=== PATIENT | female | born 1990 | race African-American/Black ===

== ENCOUNTER 2016-10-14 15:03 | Emergency (ER) | payer MEDICAID, OTHER ==
[~2016-10-14] VITALS: Ht 149.9 cm; Wt 94.8 kg
[~2016-10-14 15:03] MED LIST: CLINDAMYCIN HC300 MG ORAL; IBUPROFEN600 MG ORAL; NKM
[2016-10-14 15:27] VITALS: BP 117/76
[2016-10-14] MEDS ORDERED: Albuterol ud Inhalation HHN ONE (16:00)
[2016-10-14] MEDS ORDERED: Ipratropium 0.02% Inh Soln 2.5ml UD HHN ONE (16:00)
[2016-10-14] MEDS ORDERED: PROMETHAZINE-D118 ML ORAL (17:06)
[2016-10-14] MEDS ORDERED: ZITHROMAX250 MG ORAL (17:06)
[2016-10-14] MEDS ORDERED: PROAIR HFA8.5 GM INH (17:06)
[2016-10-14 17:25] VITALS: BP 117/76
--- NOTE | 2016-10-14 19:12 | Emergency Room Report ---
History of Present Illness General Chief Complaint: Upper Respiratory Illness Source: Patient Present Illness HPI The patient is a 26-year-old female presenting with 2 days of productive cough and headache. Headache is described as a total head 5/10 dull ache and is constant. The patient does admit to a distant history of asthma. The patient denies sick contacts recent travel. The patient denies any other symptoms including nausea, vomiting, fever, chills, night sweats, hemoptysis, neck pain or stiffness, chest pain, shortness of breath, abdominal pain. Allergies: Coded Allergies: No Known Allergies (Unverified , 11/27/12) Patient History Past Medical History: see triage record Pertinent Family History: none Last Menstrual Period: 10/03/16 Now: No Reviewed Nursing Documentation: PMH: Agreed, PSxH: Agreed Nursing Documentation-PMH Past Medical History: No Stated History Review of Systems All Other Systems: negative except mentioned in HPI Physical Exam Vital Signs Date Time Temp Pulse Resp B/P Pulse Ox O2 Delivery O2 Flow Rate FiO2 10/14/16 15:19 97.5 98 15 117/76 98 Room Air Sp02 EP Interpretation: reviewed, normal General Appearance: no apparent distress, alert, GCS 15, non-toxic Head: normocephalic, atraumatic Eyes: bilateral eye PERRL, bilateral eye normal inspection ENT: hearing grossly normal, normal pharynx, no angioedema, normal voice, TMs + canals normal, uvula midline, moist mucus membranes Neck: full range of motion, supple, supple/symm/no masses Respiratory: chest non-tender, lungs clear, no respiratory distress, no accessory muscle use, decreased breath sounds, speaking full sentences Cardiovascular #1: regular rate, rhythm, no edema Gastrointestinal: normal bowel sounds, non tender, soft, non-distended, no guarding, no rebound Musculoskeletal: back normal, gait/station normal, normal range of motion, non- tender Neurologic: alert, oriented x3, responsive, motor strength/tone normal, sensory intact, speech normal Psychiatric: judgement/insight normal, memory normal, mood/affect normal, no suicidal/homicidal ideation Skin: normal color, no rash, warm/dry, well hydrated Lymphatic: no adenopathy Medical Decision Making PA Attestation Dr. Hernandez is my supervising physician. Patient management was discussed with my supervising physician Diagnostic Impression: Primary Impression: Bronchitis ER Course The patient is a 26-year-old female presenting with 2 days of productive cough and headache. Differential diagnosis include but not limited to pharyngitis, sinusitis, AOM, bronchitis, PNA Physical exam: Afebrile. No apparent distress. HEENT exam is unremarkable. No tonsillar edema or erythema. Lungs: No wheezing. Decreased breath sounds diffusely. No accessory muscle use. Skin is warm and dry The patient is given a breathing treatment and Tylenol for headache. Lungs sounds have increased. No wheezing. The patient will be treated for bronchitis with cough medication and albuterol. ER precautions are given and the patient will follow up with primary care physician Last Vital Signs Date Time Temp Pulse Resp B/P Pulse Ox O2 Delivery O2 Flow Rate FiO2 10/14/16 17:25 97.5 98 15 117/76 98 Room Air Status: improved Disposition: HOME, SELF-CARE Condition: Improved Scripts Albuterol Sulfate* (PROAIR HFA*) 8.5 Gm Hfa.aer.ad 2 PUFFS INH Q6H, #8.5 GM 0 Refills Prov: SEDA STUART 10/14/16 D-Methorphan Hb/Prometh Hcl* (PROMETHAZINE-DM SYRUP*) 118 Ml Syrup 5 ML ORAL Q6H Y for For Cough, #118 ML 0 Refills Prov: SEDA STUART 10/14/16 Referrals: [facility],REFERRING (PCP) Patient Instructions: Acute Bronchitis Additional Instructions: I discussed my findings with the patient. All questions and concerns have been answered. Treatment and medication compliance have been addressed. I advised the patient that they need to follow up with PMD in 3-5 days. Return to ED if pain remains or worsens, cough worsens or remains, you notice blood in your sputum, you notice wheezing, you experience a fever, or if needed for any reason. Patient verbalized understanding of discharge instructions. SEDA STUART Oct 14, 2016 19:12
== END 2016-10-14 17:25 | disposition home or self-care (01) ==
LOC: EMR 15:30
DX: J40 Bronchitis, not specified as acute or chronic (principal); R51 Headache
CPT/HCPCS: 94640; 94664; 99284

== ENCOUNTER 2017-04-13 15:55 | Emergency (ER) | payer OTHER ==
[~2017-04-13] VITALS: Ht 149.9 cm; Wt 90.7 kg
[~2017-04-13 15:55] MED LIST changes: +PROAIR HFA8.5 GM INH; +PROMETHAZINE-D118 ML ORAL; +ZITHROMAX250 MG ORAL
[2017-04-13 16:45] VITALS: BP 122/84
--- NOTE | 2017-04-13 17:12 | Emergency Room Report ---
History of Present Illness General Chief Complaint: Abdominal Pain Source: Patient Present Illness HPI Presents with quadrant pain. Began last night it is severe. It's constant and radiates to her back. She been vomiting. She didn't see what color this was as it was dark last night. Denies diarrhea, dysuria. No fevers. No URI sy. Pain 9-10/10, burning pressure, constant. No meds taken. Her last period was last month. Prior period was 8 months before. Fairly normal period last month. She denies having pain like this in the past. Allergies: Coded Allergies: No Known Allergies (Unverified , 11/27/12) Patient History Past Medical History: see triage record Social History: Denies: smoking Social History Narrative with boyfriend Last Menstrual Period: 1 month Now: No Reviewed Nursing Documentation: PMH: Agreed, PSxH: Agreed Nursing Documentation-PMH Past Medical History: No Stated History Review of Systems All Other Systems: negative except mentioned in HPI Physical Exam Vital Signs Date Time Temp Pulse Resp B/P Pulse Ox O2 Delivery O2 Flow Rate FiO2 04/13/17 16:18 98.1 86 18 122/84 98 Room Air Sp02 EP Interpretation: reviewed, normal General Appearance: well appearing, no apparent distress, GCS 15, obese Head: normocephalic Eyes: bilateral eye normal inspection ENT: moist mucus membranes Neck: supple Respiratory: lungs clear, normal breath sounds Cardiovascular #1: regular rate, rhythm Cardiovascular #2: 2+ radial (R) Gastrointestinal: normal inspection, normal bowel sounds, no mass, non- distended, no rebound, guarding, tenderness - ruq, overweight Musculoskeletal: back normal, gait/station normal, normal range of motion Neurologic: alert, oriented x3, grossly normal Psychiatric: mood/affect normal Skin: normal inspection, warm/dry Medical Decision Making Diagnostic Impression: Primary Impression: Biliary colic ER Course The patient presents with quadrant pain. Differential includes gallstone, cholecystitis, peptic ulcer disease, GERD, pancreatitis amongst others. Emergent evaluation is undertaken with labs and ultrasound. Also periods been abnormally to exclude at this time. She'll be treated with IV hydration, Zofran, morphine and Pepcid. Pain not controlled with morphine. Dilaudid ordered. Labs with normal WBC, lipase and lft's. U/S + stones, normal CBD, no wall thickening or fluid. Improved. Discussed need for diet control and surgery. Patient stable for outpatient observation and treatment. At discharge, patient pressing for [place] 10 instead of 5. Laboratory Tests Test 04/13/17 16:30 White Blood Count 12.8 K/UL (4.8-10.8) H Red Blood Count 4.42 M/UL (4.20-5.40) Hemoglobin 13.5 G/DL (12.0-16.0) Hematocrit 39.5 % (37.0-47.0) Mean Corpuscular Volume 89 FL (80-99) Mean Corpuscular Hemoglobin 30.6 PG (27.0-31.0) Mean Corpuscular Hemoglobin Concent 34.3 G/DL (32.0-36.0) Red Cell Distribution Width 12.4 % (11.6-14.8) Platelet Count 254 K/UL (150-450) Mean Platelet Volume 7.3 FL (6.5-10.1) Neutrophils (%) (Auto) 80.6 % (45.0-75.0) H Lymphocytes (%) (Auto) 13.3 % (20.0-45.0) L Monocytes (%) (Auto) 5.3 % (1.0-10.0) Eosinophils (%) (Auto) 0.2 % (0.0-3.0) Basophils (%) (Auto) 0.6 % (0.0-2.0) Prothrombin Time 10.4 SEC (9.30-11.50) Prothrombin Time INR 1.0 (0.9-1.1) PTT 28 SEC (23-33) Urine Color Pale yellow Urine Appearance Clear Urine pH 6 (4.5-8.0) Urine Specific [place] 1.010 (1.005-1.035) Urine Protein Negative (NEGATIVE) Urine Glucose (UA) Negative (NEGATIVE) Urine Ketones 1+ (NEGATIVE) H Urine Occult Blood 1+ (NEGATIVE) H Urine Nitrite Negative (NEGATIVE) Urine Bilirubin Negative (NEGATIVE) Urine Urobilinogen Normal MG/DL (0.0-1.0) Urine Leukocyte Esterase 1+ (NEGATIVE) H Urine RBC 2-4 /HPF (0 - 2) H Urine WBC 0-2 /HPF (0 - 2) Urine Squamous Epithelial Cells Few /LPF (NONE/OCC) Urine Bacteria Few /HPF (NONE) Urine HCG, Qualitative Negative Sodium Level 134 mEQ/L (135-145) L Potassium Level 3.6 mEQ/L (3.4-4.9) Chloride Level 96 mEQ/L (98-107) L Carbon Dioxide Level 24 mEQ/L (20-30) Anion Gap 14 (5-15) Blood Urea Nitrogen 8 mg/dL (7-23) Creatinine 0.7 mg/dL (0.5-0.9) Estimate Glomerular Filtration Rate > 60 mL/min (>60) Glucose Level 100 mg/dL (74-106) Calcium Level 9.5 mg/dL (8.6-10.2) Total Bilirubin 0.6 mg/dL (0.0-1.2) Aspartate Amino Transferase (AST) 18 U/L (5-40) Alanine Aminotransferase (ALT) 32 U/L (3-33) Alkaline Phosphatase 64 U/L (35-104) Total Protein 7.7 g/dL (6.6-8.7) Albumin 4.5 g/dL (3.5-5.2) Globulin 3.2 g/dL Albumin/Globulin Ratio 1.4 (1.0-2.7) Lipase 27 U/L (< 60) CT/MRI/US Diagnostic Results CT/MRI/US Diagnostic Results : Imaging Test Ordered: abd u/s Impression mult stones, no obstruction, no wall thickening Last Vital Signs Date Time Temp Pulse Resp B/P Pulse Ox O2 Delivery O2 Flow Rate FiO2 04/13/17 20:38 98.1 89 20 106/62 100 Room Air Status: improved Disposition: HOME, SELF-CARE Condition: Improved Scripts Hydrocodone Bit/Acetaminophen 5-325* (NORCO 5-325*) 1 Each Tablet 1 TAB ORAL Q6H Y for For Pain, #10 TAB 0 Refills Prov: Hu Hernandez M.D. 04/13/17 Ondansetron Odt* (ZOFRAN ODT*) 4 Mg Tab.rapdis 4 MG ORAL Q8H Y for Nausea & Vomiting, #6 TAB 1 Refill Prov: Hu Hernandez M.D. 04/13/17 Hu Hernandez M.D. Apr 13, 2017 17:12
[2017-04-13] MEDS ORDERED: Famotidine 20 MG/ 2ML VIAL IVP ONE (17:15)
[2017-04-13] MEDS ORDERED: Morphine Sulfate 4mg/ml Inj IVP ONE (17:15)
[2017-04-13 17:26] LABS: APPEARANCE,URINE CLEAR; BASOPHILS % (AUTO) 0.6 % (0.0-2.0); EOSINOPHILS % (AUTO) 0.2 % (0.0-3.0); KETONES,URINE 1+ (NEGATIVE); LEUKOCYTE ESTERASE ,URINE 1+ (NEGATIVE); LYMPHOCYTES % (AUTO) 13.3 % (20.0-45.0); MEAN CORPUSCULAR HEMOGLOBIN 30.6 PG (27.0-31.0); MEAN CORPUSCULAR HGB CONC 34.3 G/DL (32.0-36.0); MEAN CORPUSCULAR VOLUME 89 FL (80-99); MEAN PLATELET VOLUME 7.3 FL (6.5-10.1); MONOCYTES % (AUTO) 5.3 % (1.0-10.0); NEUTROPHILS % (AUTO) 80.6 % (45.0-75.0); NITRITE,URINE NEGATIVE (NEGATIVE); PH,URINE 6 (4.5-8.0); PLATELET COUNT 254 K/UL (150-450); PROTEIN,URINE NEGATIVE (NEGATIVE); RED BLOOD COUNT 4.42 M/UL (4.20-5.40); RED CELL DISTRIBUTION WIDTH 12.4 % (11.6-14.8); UROBILINOGEN,URINE NORMAL MG/DL (0.0-1.0); WHITE BLOOD COUNT 12.8 K/UL (4.8-10.8)
[2017-04-13 17:35] LABS: PROTHROMBIN TIME 10.4 SEC (9.30-11.50)
[2017-04-13 17:47] LABS: BACTERIA,URINE FEW /HPF; SQUAMOUS EPITHELIAL CELL,UR FEW /LPF (NONE/OCC); WBC,URINE 0-2 /HPF (0 - 2)
[2017-04-13 17:48] LABS: ALANINE AMINOTRANSFERASE 32 U/L (3-33); ALBUMIN/GLOBULIN RATIO 1.4 (1.0-2.7); ANION GAP 14 (5-15); ASPARTATE AMINO TRANSFERASE 18 U/L (5-40); CALCIUM 9.5 mg/dL (8.6-10.2); CARBON DIOXIDE 24 mEQ/L (20-30); CHLORIDE 96 mEQ/L (98-107); CREATININE 0.7 mg/dL (0.5-0.9); GLOMERULAR FILTRATION RATE > 60 mL/min (>60); HEMOLYSIS 5; LIPASE 27 U/L (< 60); POTASSIUM 3.6 mEQ/L (3.4-4.9); SODIUM 134 mEQ/L (135-145); TOTAL PROTEIN 7.7 g/dL (6.6-8.7)
[2017-04-13] MEDS ORDERED: HYDROmorphone 1mg/ml Carpuject ONE (17:54)
[2017-04-13 18:00] VITALS: BP 121/69
[2017-04-13] MEDS ORDERED: HYDROmorphone 1mg/ml Carpuject IVP ONE (18:00)
[2017-04-13 19:00] VITALS: BP 106/62
[2017-04-13] MEDS ORDERED: NORCO 5-325 TA1 EACH ORAL (20:31)
[2017-04-13] MEDS ORDERED: ZOFRAN ODT4 MG ORAL (20:31)
[2017-04-13 20:38] VITALS: BP 106/62
--- NOTE | 2017-04-15 08:30 | Diagnostic Imaging Report ---
Indication:Abdominal pain Technique: Grayscale and duplex Doppler imaging of the abdomen performed. Comparison: None Findings: Gallstones are present. There is no wall thickening or pericholecystic fluid. The liver, demonstrated part of the pancreas, aorta and IVC, both kidneys, spleen appear unremarkable. There is no biliary ductal dilatation identified. CBD is between 7 and 8 mm Doppler evaluation of the main portal vein shows patency. There is no ascites. No hydronephrosis seen. Impression: Cholelithiasis
== END 2017-04-13 20:38 | disposition home or self-care (01) ==
LOC: EMR 18:11
DX: K80.50 Calculus of bile duct without cholangitis or cholecystitis without obstruction (principal); E66.9 Obesity, unspecified
CPT/HCPCS: 36415; 80053; 81003; 81025; 83690; 85025; 85610; 85730; 96361; 96374; 96375; 99284; J1170; J2270; J2405; S0028; 76700

== ENCOUNTER 2017-12-21 03:48 | Emergency (ER) | payer OTHER ==
[~2017-12-21] VITALS: Ht 149.9 cm; Wt 99.8 kg
[~2017-12-21 03:48] MED LIST changes: +NORCO 5-325 TA1 EACH ORAL; +ZOFRAN ODT4 MG ORAL
[2017-12-21] MEDS ORDERED: Dicyclomine HCl 10mg/5ml oral soln ORAL ONE (04:15)
[2017-12-21] MEDS ORDERED: Lidocaine 2% Visc 15ml soln ORAL ONE (04:15)
[2017-12-21 05:28] LABS: APPEARANCE,URINE CLEAR; BILIRUBIN, URINE NEGATIVE (NEGATIVE); GLUCOSE, URINE (UA) NEGATIVE (NEGATIVE); KETONES,URINE NEGATIVE (NEGATIVE); LEUKOCYTE ESTERASE ,URINE 1+ (NEGATIVE); NITRITE,URINE NEGATIVE (NEGATIVE); PH,URINE 5 (4.5-8.0); PROTEIN,URINE NEGATIVE (NEGATIVE); UROBILINOGEN,URINE NORMAL MG/DL (0.0-1.0)
[2017-12-21 05:30] LABS: COLOR,URINE YELLOW
[2017-12-21] MEDS ORDERED: Morphine Sulfate 4mg/ml Inj IVP ONE (05:30)
[2017-12-21 05:32] LABS: HEMATOCRIT 38.3 % (37.0-47.0); HEMOGLOBIN 13.5 G/DL (12.0-16.0); LYMPHOCYTES % (AUTO) 25.7 % (20.0-45.0); MEAN CORPUSCULAR VOLUME 89 FL (80-99); MONOCYTES % (AUTO) 4.3 % (1.0-10.0); PLATELET COUNT 269 K/UL (150-450); RED BLOOD COUNT 4.32 M/UL (4.20-5.40); RED CELL DISTRIBUTION WIDTH 11.9 % (11.6-14.8); WHITE BLOOD COUNT 6.9 K/UL (4.8-10.8)
[2017-12-21 05:39] VITALS: BP 122/78
[2017-12-21 05:44] LABS: ANION GAP 11 mmol/L (5-15); BLOOD UREA NITROGEN 15 mg/dL (7-18); CARBON DIOXIDE 24 MMOL/L (21-32); CHLORIDE 104 MMOL/L (98-107); CREATININE 0.7 MG/DL (0.55-1.30); SODIUM 139 MMOL/L (136-145)
[2017-12-21 05:47] LABS: INR 0.9 (0.9-1.1)
[2017-12-21 05:50] LABS: ALANINE AMINOTRANSFERASE 47 U/L (12-78); ALKALINE PHOSPHATASE 69 U/L (46-116); ASPARTATE AMINO TRANSFERASE 21 U/L (15-37); BILIRUBIN,TOTAL 0.4 MG/DL (0.2-1.0)
[2017-12-21] MEDS ORDERED: DICYCLOMINE HCL10 MG PO (05:58)
[2017-12-21] MEDS ORDERED: PEPCID20 MG ORAL (05:58)
[2017-12-21 06:20] VITALS: BP 122/78
--- NOTE | 2017-12-21 07:19 | Emergency Room Report ---
History of Present Illness General Chief Complaint: Abdominal Pain Source: Patient Present Illness HPI Patient is a 27-year-old female who presented after increased abdominal discomfort. Patient gradual onset of symptoms. She denies being . Patient states she previously been diagnosed with gallstones. She reported having epigastric pain which radiated to her back. She denied any black or bloody stools or hematemesis. The patient reported having taken ibuprofen without any relief. Allergies: Coded Allergies: No Known Allergies (Unverified , 11/27/12) Patient History Past Medical History: see triage record Last Menstrual Period: 3 days ago Now: No : 4 Para: 2 Reviewed Nursing Documentation: PMH: Agreed; PSxH: Agreed Review of Systems All Other Systems: negative except mentioned in HPI Physical Exam Vital Signs Date Time Temp Pulse Resp B/P (MAP) Pulse Ox O2 Delivery O2 Flow Rate FiO2 12/21/17 04:01 98.0 82 18 121/80 98 Room Air 98.1 Sp02 EP Interpretation: reviewed, normal General Appearance: normal inspection, well appearing, no apparent distress, alert, GCS 15, obese Head: atraumatic ENT: normal ENT inspection, hearing grossly normal, normal voice Neck: normal inspection, full range of motion, supple, no bony tend Respiratory: normal inspection, lungs clear, normal breath sounds, no respiratory distress, no retraction, no wheezing Cardiovascular #1: regular rate, rhythm, no edema Gastrointestinal: normal inspection, normal bowel sounds, non tender, soft, no guarding, no hernia Genitourinary: no CVA tenderness Musculoskeletal: normal inspection, back normal, normal range of motion Neurologic: normal inspection, alert, oriented x3, responsive, insecticide expert III-XII nml as tested, speech normal Psychiatric: normal inspection, judgement/insight normal, mood/affect normal Skin: normal inspection, normal color, no rash Medical Decision Making Diagnostic Impression: Primary Impression: Abdominal pain ER Course Patient presented for abdominal pain. Differential diagnoses included ischemic bowel, appendicitis, perforated viscus, abdominal aortic aneurysm, inferior myocardial infarction, viral gastroenteritis Because of complexity of patient's case laboratory testing was ordered. The laboratory testing was unremarkable. Patient was noted to have a mildly elevated blood sugar. The patient is advised recheck blood sugar. The patient had recent ultrasound imaging which showed gallstones. Patient does not appear to require ultrasound imaging at this time.The patient is advised to follow up with primary care doctor in 1-2 days. Patient is advised to return if any worsening condition or if any changes in status that are concerning. This report is dictated with [employer] stenciling machine tender software which may occasionally lead to discrepancies related to use of this software. Labs Test 12/21/17 04:06 12/21/17 05:01 Urine HCG, Qualitative Negative (NEGATIVE) White Blood Count 6.9 K/UL (4.8-10.8) Red Blood Count 4.32 M/UL (4.20-5.40) Hemoglobin 13.5 G/DL (12.0-16.0) Hematocrit 38.3 % (37.0-47.0) Mean Corpuscular Volume 89 FL (80-99) Mean Corpuscular Hemoglobin 31.3 PG (27.0-31.0) Mean Corpuscular Hemoglobin Concent 35.3 G/DL (32.0-36.0) Red Cell Distribution Width 11.9 % (11.6-14.8) Platelet Count 269 K/UL (150-450) Mean Platelet Volume 7.4 FL (6.5-10.1) Neutrophils (%) (Auto) 67.0 % (45.0-75.0) Lymphocytes (%) (Auto) 25.7 % (20.0-45.0) Monocytes (%) (Auto) 4.3 % (1.0-10.0) Eosinophils (%) (Auto) 2.0 % (0.0-3.0) Basophils (%) (Auto) 1.0 % (0.0-2.0) Prothrombin Time 9.8 SEC (9.30-11.50) Prothromb Time International Ratio 0.9 (0.9-1.1) Activated Partial Thromboplast Time 29 SEC (23-33) Urine Color Yellow Urine Appearance Clear Urine pH 5 (4.5-8.0) Urine Specific [place] 1.020 (1.005-1.035) Urine Protein Negative (NEGATIVE) Urine Glucose (UA) Negative (NEGATIVE) Urine Ketones Negative (NEGATIVE) Urine Occult Blood 2+ (NEGATIVE) Urine Nitrite Negative (NEGATIVE) Urine Bilirubin Negative (NEGATIVE) Urine Urobilinogen Normal MG/DL (0.0-1.0) Urine Leukocyte Esterase 1+ (NEGATIVE) Urine RBC 0-2 /HPF (0 - 2) Urine WBC 2-4 /HPF (0 - 2) Urine Squamous Epithelial Cells Moderate /LPF (NONE/OCC) Urine Bacteria Few /HPF (NONE) Sodium Level 139 MMOL/L (136-145) Potassium Level 4.0 MMOL/L (3.5-5.1) Chloride Level 104 MMOL/L (98-107) Carbon Dioxide Level 24 MMOL/L (21-32) Anion Gap 11 mmol/L (5-15) Blood Urea Nitrogen 15 mg/dL (7-18) Creatinine 0.7 MG/DL (0.55-1.30) Estimat Glomerular Filtration Rate > 60 mL/min (>60) Glucose Level 135 MG/DL (74-106) Calcium Level 9.0 MG/DL (8.5-10.1) Total Bilirubin 0.4 MG/DL (0.2-1.0) Aspartate Amino Transf (AST/SGOT) 21 U/L (15-37) Alanine Aminotransferase (ALT/SGPT) 47 U/L (12-78) Alkaline Phosphatase 69 U/L (46-116) Total Protein 8.1 G/DL (6.4-8.2) Albumin 4.0 G/DL (3.4-5.0) Globulin 4.1 g/dL Albumin/Globulin Ratio 1.0 (1.0-2.7) Lipase 222 U/L (73-393) Last Vital Signs Date Time Temp Pulse Resp B/P (MAP) Pulse Ox O2 Delivery O2 Flow Rate FiO2 12/21/17 06:20 80 18 122/78 96 Room Air 12/21/17 05:39 97.8 97.8 Status: improved Disposition: HOME, SELF-CARE Condition: Stable Scripts Famotidine (PEPCID) 20 Mg Tablet 20 MG ORAL DAILY, #7 TAB 0 Refills Prov: Elvin Padron 12/21/17 Dicyclomine Hcl* (DICYCLOMINE HCL*) 10 Mg Capsule 10 MG PO QID, #20 CAP Prov: Elvin Padron 12/21/17 Patient Instructions: Abdominal Pain, Adult Elvin Padron Dec 21, 2017 07:19
== END 2017-12-21 06:26 | disposition home or self-care (01) ==
LOC: EMR 04:08
DX: R10.9 Unspecified abdominal pain (principal)
CPT/HCPCS: 36415; 80053; 81003; 81025; 83690; 85025; 85610; 85730; 96374; 96375; 99284; J2270; J2405; S0028

== ENCOUNTER 2019-03-24 13:00 | Emergency (ER) | payer OTHER ==
[~2019-03-24] VITALS: Ht 149.9 cm; Wt 70.3 kg
[~2019-03-24 13:00] MED LIST changes: +DICYCLOMINE HCL10 MG PO; +PEPCID20 MG ORAL
[2019-03-24 13:15] VITALS: BP 113/79
--- NOTE | 2019-03-24 13:18 | NUR ---
ED Nurse Note: Patient walked in to ER due to abdominal pain 2 days ago and denied pain at this moment. but pt concers about spotting with small amount of blood for 2 days. Patient alert and oriented x4 and ambulatory. skin clean and intact. calm and cooperative.
--- NOTE | 2019-03-24 13:27 | NUR ---
ED Nurse Note: ERPA at bedside.
--- NOTE | 2019-03-24 14:07 | Emergency Room Report ---
History of Present Illness General Chief Complaint: Abdominal Pain Source: Patient Present Illness HPI 29-year-old female with no significant past medical history here complaining of 2 days of epigastric abdominal pain and nausea. Patient also reports that she had her last menstrual period was 2 weeks ago reports having spotting 2 weeks ago. However starting 2 days ago she started having clotting and increased vaginal bleeding. Denies suprapubic pain pressure, syncope, fever and chills, vomiting, diarrhea. Patient reports that she was last sexually active on the week of her ovulation as she is trying to get . To P2 and has not had any previous miscarriages. Patient denies drinking alcohol, smoking, drug use. However her tells me that she has been taking [place] for generalized pain given to her by her primary care provider. Patient denies taking any [place] today or yesterday. Also reports that she is on metronidazole for bacterial vaginosis she started taking the medication 2 days ago. Patient does not appear to be a good historian. When asked multiple times if she is taking medication she denies any medication however her significant other releases that she takes [place] and metronidazole. Denies chest pain, shortness of breath , palpitation, dizziness, headache. Denies recent travel. Allergies: Coded Allergies: No Known Allergies (Unverified , 11/27/12) Patient History Past Medical History: see triage record Past Surgical History: unable to obtain Pertinent Family History: unable to obtain Last Menstrual Period: 2 weeks ago Immunizations: UTD Reviewed Nursing Documentation: PMH: Agreed; PSxH: Agreed Nursing Documentation-PMH Past Medical History: No History, Except For Review of Systems All Other Systems: negative except mentioned in HPI Physical Exam Vital Signs Date Time Temp Pulse Resp B/P (MAP) Pulse Ox O2 Delivery O2 Flow Rate FiO2 03/24/19 13:08 99.0 84 19 113/79 (90) 97 Room Air Sp02 EP Interpretation: reviewed, normal General Appearance: normal inspection, well appearing, no apparent distress, alert Head: normocephalic Eyes: bilateral eye normal inspection, bilateral eye PERRL ENT: normal ENT inspection, normal pharynx Neck: normal inspection, full range of motion, supple Respiratory: chest non-tender, lungs clear, no respiratory distress, no wheezing Cardiovascular #1: normal inspection, normal peripheral pulses, regular rate, rhythm, no edema, no murmur, normal capillary refill Gastrointestinal: normal bowel sounds, non tender, soft, no mass, no organomegaly, no peritonitis, no bruit, no guarding, no hernia, no pulsatile mass, no rebound Rectal: deferred Genitourinary: no CVA tenderness Musculoskeletal: normal inspection, back normal, digits/nails normal, gait/ station normal, non-tender Neurologic: normal inspection, alert, oriented x3 Psychiatric: normal inspection, judgement/insight normal, memory normal Skin: no rash, palpation normal Lymphatic: normal inspection, no adenopathy Medical Decision Making PA Attestation All my diagnosis and treatment plans were reviewed ad discussed with my supervising physician Dr. Padron Diagnostic Impression: Primary Impression: Abnormal uterine bleeding Additional Impression: Nabothian cyst ER Course 29-year-old female with no significant past medical history here complaining of 2 days of epigastric abdominal pain and nausea. Patient also reports that she had her last menstrual period was 2 weeks ago reports having spotting 2 weeks ago. However starting 2 days ago she started having clotting and increased vaginal bleeding. Denies suprapubic pain pressure, syncope, fever and chills, vomiting, diarrhea. Patient reports that she was last sexually active on the week of her ovulation as she is trying to get . To P2 and has not had any previous miscarriages. Patient denies drinking alcohol, smoking, drug use. However her tells me that she has been taking [place] for generalized pain given to her by her primary care provider. Patient denies taking any [place] today or yesterday. Also reports that she is on metronidazole for bacterial vaginosis she started taking the medication 2 days ago. Patient does not appear to be a good historian. When asked multiple times if she is taking medication she denies any medication however her significant other releases that she takes [place] and metronidazole. Denies chest pain, shortness of breath , palpitation, dizziness, headache. Denies recent travel. Ddx considered but are not limited to: appendicitis, cholycisitis, gastritis, gasthroentritis, UTI, pylonephritis, SBO, diverticulitis, influenza with GI manifestation, [place], complication with nabothian Cyst, abnormal uterine bleeding Vital signs: are WNL, pt. is afebrile H&PE are most consistent with: Nabothian cyst, abnormal uterine bleeding ORDERS: abdominal pain set, pelvic/abd US, zofran ED INTERVENTIONS: None required at this time. DISCHARGE: At this time pt. is stable for d/c to home. Will provide printed patient care instructions, and any necessary prescriptions. Care plan and follow up instructions have been discussed with the patient prior to discharge. Follow-up with a primary care provider for referral to [facility] at this time no further emergent action needed nabothian cyst can be taken care of at [facility] and can be removed and also biopsied for further investigation CT/MRI/US Diagnostic Results CT/MRI/US Diagnostic Results #1: Imaging Test Ordered: Abdominal ultrasound Impression Within normal limits CT/MRI/US Diagnostic Results #2: Imaging Test Ordered: Pelvic ultrasound Impression Multiple nabothian cysts Last Vital Signs Date Time Temp Pulse Resp B/P (MAP) Pulse Ox O2 Delivery O2 Flow Rate FiO2 03/24/19 13:15 99.0 84 19 113/79 97 Room Air Disposition: HOME, SELF-CARE Condition: Stable Scripts Ibuprofen* (MOTRIN*) 600 Mg Tablet 600 MG ORAL Q8H PRN for For Pain, #30 TAB 0 Refills Prov: Swetha Bravo 03/24/19 Ondansetron (Zofran) 4 Mg Tablet 4 MG ORAL Q6H PRN for Nausea & Vomiting, #12 TAB Prov: Swetha Bravo 03/24/19 Patient Instructions: Abnormal Uterine Bleeding, [id number] Additional Instructions: Follow-up with a primary care provider to be sent to [facility] for further assessment of cervical cyst that you have as well as abnormal vaginal bleeding at this time no further emergent action needed to be taken. Drink lots of fluids take medication as directed. Swetha Bravo Mar 24, 2019 14:07
[2019-03-24 14:10] LABS: BASOPHILS % (AUTO) 1.1 % (0.0-2.0); EOSINOPHILS % (AUTO) 0.9 % (0.0-3.0); HEMATOCRIT 39.5 % (37.0-47.0); HEMOGLOBIN 13.2 G/DL (12.0-16.0); LYMPHOCYTES % (AUTO) 29.7 % (20.0-45.0); MEAN CORPUSCULAR VOLUME 93 FL (80-99); MONOCYTES % (AUTO) 6.5 % (1.0-10.0); NEUTROPHILS % (AUTO) 61.9 % (45.0-75.0); PLATELET COUNT 290 K/UL (150-450); RED BLOOD COUNT 4.26 M/UL (4.20-5.40); RED CELL DISTRIBUTION WIDTH 11.7 % (11.6-14.8); WHITE BLOOD COUNT 7.3 K/UL (4.8-10.8)
--- NOTE | 2019-03-24 14:11 | NUR ---
ED Nurse Note: pt went down for US.
[2019-03-24 14:17] LABS: ANION GAP 11 mmol/L (5-15); BLOOD UREA NITROGEN 17 mg/dL (7-18); CALCIUM 9.6 MG/DL (8.5-10.1); CARBON DIOXIDE 26 MMOL/L (21-32); CHLORIDE 103 MMOL/L (98-107); CREATININE 0.6 MG/DL (0.55-1.30); POTASSIUM 3.7 MMOL/L (3.5-5.1); SODIUM 139 MMOL/L (136-145)
[2019-03-24 14:21] LABS: APPEARANCE,URINE SLIGHTLY CLOUDY; BILIRUBIN, URINE NEGATIVE (NEGATIVE); COLOR,URINE BROWN; GLUCOSE, URINE (UA) NEGATIVE (NEGATIVE); KETONES,URINE 1+ (NEGATIVE); LEUKOCYTE ESTERASE ,URINE 1+ (NEGATIVE); NITRITE,URINE NEGATIVE (NEGATIVE); PH,URINE 6.5 (4.5-8.0); PROTEIN,URINE NEGATIVE (NEGATIVE); UROBILINOGEN,URINE 4 MG/DL (0.0-1.0)
[2019-03-24 14:22] LABS: ALANINE AMINOTRANSFERASE 43 U/L (12-78); ALBUMIN 4.1 G/DL (3.4-5.0); ALBUMIN/GLOBULIN RATIO 1.1 (1.0-2.7); ALKALINE PHOSPHATASE 71 U/L (46-116); ASPARTATE AMINO TRANSFERASE 23 U/L (15-37); BILIRUBIN,TOTAL 0.7 MG/DL (0.2-1.0)
[2019-03-24 15:15] VITALS: BP 121/85
--- NOTE | 2019-03-24 15:47 | NUR ---
ED Nurse Note: pt came back from US.
--- NOTE | 2019-03-24 16:11 | Diagnostic Imaging Report ---
Indication: Vaginal bleeding, pelvic pain, negative test Technique: Transabdominal and transvaginal images of the pelvis. Doppler interrogation of the bilateral ovaries Comparison: none Findings: Uterus is anteverted, retroflexed, measures 8.4 cm in length by 4.3 cm AP. The endometrium measures 7 mm thick. No myometrial abnormality. Multiple nabothian cysts are seen in the cervix. The left ovary measures 2.7 cm length. Right ovary measures 3.6 cm length. Both ovaries demonstrate normal flow on Doppler interrogation. No free cul-de-sac fluid Impression: No acute or significant abnormality. Negative for adnexal mass Incidental finding of multiple cervical nabothian cysts
[2019-03-24] MEDS ORDERED: ZOFRAN4 M1 ORAL (16:19)
[2019-03-24] MEDS ORDERED: IBUPROFEN600 MG ORAL (16:19)
[2019-03-24 16:22] VITALS: BP 124/77
--- NOTE | 2019-03-24 16:23 | NUR ---
ER DISCHARGE NOTE: Patient is cleared to be discharged per ERPA after discussing US results with pt and , pt is aox4, on room air, with stable vital signs. pt was given dc and prescription instructions, pt was able to verbalize understanding, pt id band and iv site removed without complications. pt is able to ambulate with steady gait. pt took all belongings.
--- NOTE | 2019-03-24 16:25 | Diagnostic Imaging Report ---
Indication: Abdominal pain Technique: Valdez-scale and duplex images of the upper abdomen were obtained Comparison: 04/13/2017 Findings: Gallbladder is surgically absent. Common bile duct measures 4 mm in diameter. No intrahepatic biliary ductal dilatation. Liver demonstrates normal echogenicity, no focal abnormality. Portal vein and hepatic veins are patent. Pancreas is unremarkable. Spleen is unremarkable. Left kidney measures cm in length. Right kidney measures 10.2 cm length. Both kidneys demonstrate normal echogenicity. There is no hydronephrosis. No focal abnormality . Non-aneurysmal abdominal aorta . Impression: Surgically absent gallbladder Negative for dilated bile ducts or other significant abnormality
== END 2019-03-24 16:22 | disposition home or self-care (01) ==
LOC: EMR 14:00
DX: N93.8 Other specified abnormal uterine and vaginal bleeding (principal); N88.8 Other specified noninflammatory disorders of cervix uteri
CPT/HCPCS: 36415; 76700; 76830; 76856; 80053; 80307; 81001; 81025; 84703; 85025; 99284